=== PATIENT | male | born 2000 | race Caucasian/White ===

== ENCOUNTER 2020-12-08 16:07 | Outpatient (REF) | payer BC, SELFPAY ==
[2020-12-10 10:34] LABS: Syphilis Serology (RPR) Negative (Negative)
[2020-12-10 14:08] LABS: Chlamydia Result Negative (Negative); GC Result Negative (Negative)
== END 2020-12-08 16:08 | disposition home or self-care (01) ==
LOC: NCHCN 16:07
PROVIDERS: PCP Nurse Practitioner Family; Visit Provider Nurse Practitioner Family
DX: Z00.00 Encounter for general adult medical examination without abnormal findings (principal); F17.210 Nicotine dependence, cigarettes, uncomplicated; Z11.3 Encounter for screening for infections with a predominantly sexual mode of transmission; L98.9 Disorder of the skin and subcutaneous tissue, unspecified
CPT/HCPCS: 87491; 87591; 86592